=== PATIENT | female | born 1970 | race Caucasian/White ===

== ENCOUNTER → 2019-09-15 09:08 | Outpatient (CLI) | payer BC, SELFPAY ==
[2019-09-16 12:18] LABS: COVID19 Sendout Not Detected (Not Detect)
== END ==
PROVIDERS: PCP Family Medicine; Visit Provider Physician Assistant
DX: J02.9 Acute pharyngitis, unspecified (principal)
CPT/HCPCS: 87635

== ENCOUNTER → 2019-12-07 | Outpatient (CLI) | payer OTHER, SELFPAY | PROVIDERS: PCP Family Medicine; Referring Provider Internal Medicine; Visit Provider Internal Medicine | DX: Z23 Encounter for immunization (principal) | CPT/HCPCS: 90471; 90686 ==

== ENCOUNTER → 2020-03-14 12:17 | Outpatient (CLI) | payer OTHER, SELFPAY ==
[2020-03-14] MEDS: COVID-19 VACC(MODERNA-1)/PF 100 MCG/0.5 ML VIAL IM (12:21)
== END ==
PROVIDERS: Visit Provider Internal Medicine
DX: Z23 Encounter for immunization (principal)
CPT/HCPCS: 0011A; 91301

== ENCOUNTER → 2020-04-10 07:53 | Outpatient (CLI) | payer OTHER, SELFPAY ==
[2020-04-10] MEDS: COVID-19 VACC #2, MRNA(MOD) 100 MCG/0.5 ML VIAL IM (07:59)
== END ==
PROVIDERS: Visit Provider Internal Medicine
DX: Z23 Encounter for immunization (principal)
CPT/HCPCS: 0012A; 91301

== ENCOUNTER → 2020-10-08 10:56 | Outpatient (CLI) | payer OTHER, SELFPAY ==
[2020-10-08 11:47] LABS: COVID19 -Nasal RAPID Negative (Negative)
== END ==
PROVIDERS: Visit Provider Physician Assistant
DX: J02.9 Acute pharyngitis, unspecified (principal); R05 Cough; R09.81 Nasal congestion; Z20.822 Contact with and (suspected) exposure to COVID-19
CPT/HCPCS: 87635

== ENCOUNTER → 2020-12-27 11:30 | Outpatient (CLI) | payer OTHER, SELFPAY ==
[2020-12-27 11:50] LABS: COVID19 -Nasal RAPID Negative (Negative)
== END ==
PROVIDERS: Visit Provider Nurse Practitioner Family
DX: Z20.822 Contact with and (suspected) exposure to COVID-19 (principal)
CPT/HCPCS: 87635

== ENCOUNTER → 2021-01-09 09:31 | Outpatient (CLI) | payer OTHER, SELFPAY ==
[2021-01-09 12:43] LABS: COVID19 -Nasal RAPID Negative (Negative)
== END ==
PROVIDERS: Visit Provider Nurse Practitioner Family
DX: Z20.822 Contact with and (suspected) exposure to COVID-19 (principal); R05.9 Cough, unspecified
CPT/HCPCS: 87635

== ENCOUNTER → 2021-01-14 11:56 | Outpatient (CLI) | payer OTHER, SELFPAY | PROVIDERS: Referring Provider Internal Medicine; Visit Provider Internal Medicine | DX: Z23 Encounter for immunization (principal) | CPT/HCPCS: 90471; 90686 ==

== ENCOUNTER → 2021-01-18 13:31 | Outpatient (CLI) | payer OTHER, SELFPAY ==
[2021-01-18] MEDS: COVID-19 VACC #3, MRNA(MOD) 50 MCG/0.25 ML VIAL IM (13:41)
== END ==
PROVIDERS: Visit Provider Internal Medicine
DX: Z23 Encounter for immunization (principal)
CPT/HCPCS: 0013A; 91301

== ENCOUNTER → 2022-01-23 08:50 | Outpatient (CLI) | payer OTHER, SELFPAY ==
[2022-01-23 12:52] LABS: COVID19 -Nasal RAPID Negative (Negative)
[2022-01-23 15:20] LABS: COVID19 -Nasal RAPID Negative (Negative)
== END ==
PROVIDERS: Surgery; PCP Family Medicine; Visit Provider Family Medicine
DX: Z20.822 Contact with and (suspected) exposure to COVID-19 (principal); Z01.812 Encounter for preprocedural laboratory examination
CPT/HCPCS: 87635; C9803

== ENCOUNTER 2022-01-24 09:43 | Day surgery (SDC) | payer OTHER, SELFPAY ==
--- NOTE | 2022-01-24 | PATH_ITS ---
[facility] Accession Number: [id number] . 01 Material submitted: . colon - DESCENDING COLON POLYP . 01 Diagnosis: Descending Colon Polyp, Biopsy: Inflammatory polyp. Negative for dysplasia or malignancy. MRV 01/27/2022 1318 Local . 01 Electronically signed: . Ki Calles MD, PhD, Pathologist NPI- [id number] . 01 Gross description: . DESCENDING COLON POLYP: Received in formalin is 1 fragment(s) of lewis, soft tissue measuring 1.0 x 0.5 x 0.3 cm which is bisected and submitted entirely in 1 cassette(s) /CPE 01/25/2022 1001 Local . 01 Pathologist provided ICD-10: K51.40 . 01 CPT . 481943 Specimen Comment: A courtesy copy of this report has been sent to [phone] Performed at: 01 [facility] [address] [place] [address], [place], [place] [id number] MD Martin Stock MD Phone: [phone]
[2022-01-24 10:03] VITALS: BP 105/70; PULSE 63; RESP 16; TEMP 36.4; O2SAT 100; BMI 21.6
[2022-01-24 10:06] VITALS: BP 95/65; PULSE 71; RESP 18; TEMP 36.4; O2SAT 99
[2022-01-24] MEDS: LACTATED RINGERS 1,000 ML 100 ML IV (10:12)
--- NOTE | 2022-01-24 10:23 | P.HP_ITS ---
History of Present Illness History of Present Illness Date Patient Seen: 01/24/22 Time Patient Seen: 10:24 Chief complaint: [facility] [place] Narrative: colon cancer screening, first scope, no family history or symptoms concerning for colon cancer. Patient History Medical History Anxiety (~2006) Surgical History History of oral surgery Family & Social History Family History Father Congestive heart failure Hypertension Mother Breast cancer Grandfather Lung cancer Grandmother Breast cancer Grandfather Bladder cancer Grandmother Myocardial infarction Family/Other No problems noted. Social History: household members spouse Tobacco & Substance use: Smoking Status Never smoker alcohol intake current alcohol intake frequency a few times a week Substance Use Type does not use Meds Home Medications and Allergies Home Medications Medication Instructions Recorded Confirmed Type citalopram 20 mg tablet (Celexa) 30 mg PO QDAY #30 tabs 01/02/16 01/24/22 History bupropion HCl 150 mg 24 hr tablet, 150 mg PO DAILY 01/24/22 History extended release Allergies Allergy/AdvReac Type Severity Reaction Status Date / Time No Known Drug Allergies Allergy Verified 01/24/22 09:59 Review of Systems Review of Systems ROS: Yes All systems reviewed with the patient and are negative except as otherwise documented Exam Vital Signs (past 8 hours): - 01/24/22 10:03 Temperature 97.5 F L Pulse Rate 63 Respiratory Rate 16 Blood Pressure 105/70 Pulse Oximetry 100 Oxygen Delivery Method Room Air Oxygen Delivery Method Room Air Const General: cooperative and healthy appearing [facility] Head: normal to inspection, normocephalic and atraumatic Eyes General: appearance normal, both eyes and all related structures Neck Neck: normal visual inspection and trachea midline Chest Chest: normal inspection of the chest Resp Effort & Inspection: normal respiratory effort Cardio Rate: regular rate Rhythm: regular rhythm GI Inspection: normal to inspection Skin General: no rashes or lesions noted Neuro General: patient alert, patient awake and patient oriented x3 Cognition: normal cognition Extrem General: normal to inspection and full ROM Psych Appearance: grossly normal Mental Status: mental status grossly normal Judgment: judgment good Assessment & Plan Assessment & Plan narrative: colon cancer screening using colonoscopy with MAC COVID-19 COVID-19 status: Negative Time Spent With Patient Time with patient: less than 30 minutes Critical Care time: I spent a total of [] minutes of critical care time on this patient's care today; this time is exclusive of procedural time.
--- NOTE | 2022-01-24 11:01 | PM.OP.COLON ---
Operative Date/Time/Diagnoses Date of procedure: 01/24/22 Time of procedure: 11:02 Pre-op diagnosis: Colon cancer screening Post-op diagnosis: same Procedure & Clinicians Study performed: Colonoscopy with cold snare polypectomy under MAC Same procedure as scheduled: Yes Indications: Colon cancer screening Surgeon: Melani Armstrong Procedure Notes Procedure in detail: Preop diagnosis: Colon cancer screening Postop diagnosis: Same Operative procedure: Colonoscopy with cold snare polypectomy using MAC Surgeon: Marley Armstrong MD Findings: No diverticulosis. She did have 1 polyp measuring approximately 5 mm on a long stalk in the descending colon. Procedure: Patient placed in a lateral position. Rectal exam performed showing normal tone no masses. Colonoscope inserted into the rectum advanced to ileocecal valve with minimal difficulty. Insufflation extraction scope and the above findings. Impression: Single polyp in the descending colon measuring approximately 5 mm in size. Was on a long stalk and removal was carried out in such a fashion that there should be clear margins. No diverticulosis Plan: Repeat colonoscopy in 5 years Findings: polyp(s) Specimen(s): other (Descending colon polyp, 5 mm) Complications: none Post-procedure Recommendations: Colonoscopy in 5 years Follow up: as needed Disposition: PACU
[2022-01-24 11:11] VITALS: BP 88/59; PULSE 65; RESP 14; O2SAT 100
[2022-01-24 11:21] VITALS: BP 93/63; PULSE 56; RESP 16; TEMP 36.6; O2SAT 99
[2022-01-24 11:24] VITALS: BP 106/66; PULSE 61; RESP 16; TEMP 36.6; O2SAT 100
== END 2022-01-24 11:38 | disposition home or self-care (01) ==
PROVIDERS: PCP Family Medicine; Referring Provider Surgery; Visit Provider Surgery
PROC: 0DJD8ZZ Inspection of Lower Intestinal Tract, Via Natural or Artificial Opening Endoscopic (ICD-10-PCS; CPT 45378; principal; 2022-01-24 10:45)
DX: Z12.11 Encounter for screening for malignant neoplasm of colon (principal); K51.40 Inflammatory polyps of colon without complications
CPT/HCPCS: 45385; J2704

== ENCOUNTER → 2022-02-06 14:12 | Outpatient (CLI) | payer OTHER, SELFPAY | PROVIDERS: PCP Family Medicine; Referring Provider Internal Medicine; Visit Provider Internal Medicine | DX: Z23 Encounter for immunization (principal) | CPT/HCPCS: 90471; 90686 ==

== ENCOUNTER → 2023-01-06 10:53 | Outpatient (CLI) | payer OTHER, SELFPAY | PROVIDERS: PCP Family Medicine; Referring Provider Family Medicine; Visit Provider Family Medicine | DX: Z23 Encounter for immunization (principal) | CPT/HCPCS: 90471; 90686 ==

== ENCOUNTER → 2024-01-26 | Outpatient (CLI) | payer OTHER, SELFPAY | PROVIDERS: PCP Family Medicine; Referring Provider Internal Medicine; Visit Provider Internal Medicine | DX: Z23 Encounter for immunization (principal) | CPT/HCPCS: 90471; 90656 ==

== ENCOUNTER → 2024-04-19 08:05 | Outpatient (CLI) | payer OTHER, SELFPAY ==
[2024-04-19 09:06] LABS: Influenza A - CEPHEID Flu A NEGATIVE (NEGATIVE); Influenza B - CEPHEID Flu B NEGATIVE (NEGATIVE); Respiratory Syncytial Virus Negative (Negative)
[2024-04-19 09:07] LABS: COVID-19 CEPHEID 4-PLEX PCR Negative (Negative)
== END ==
PROVIDERS: PCP Family Medicine; Visit Provider Family Medicine
DX: R05.1 Acute cough (principal)
CPT/HCPCS: 0241U